=== PATIENT | female | born 1940 | race Caucasian/White ===

== ENCOUNTER 2022-02-23 12:48 | Emergency (ER) | payer OTHER ==
[2022-02-23 13:26] VITALS: BMI 34.3
[2022-02-23 14:11] LABS: INR 1.02 (0.83-1.09); PROTHROMBIN TIME (PATIENT) 11.7 SEC (9.7-13.0)
[2022-02-23 14:32] LABS: ACTIVATED PTT 29.2 SECONDS (25.2-36.5)
[2022-02-23 14:42] LABS: BASO % 0.3 % (0-2.0); HEMATOCRIT 45.9 % (32.4-45.2); HEMOGLOBIN 15.1 GM/dL (10.7-15.3); LYMPH % 12.5 % (8-40); MCH 27.8 pg (25.7-33.7); MCHC 32.9 g/dl (32.0-36.0); MEAN CELL VOLUME 84.5 fl (80-96); MEAN PLT VOLUME 10.3 fl (7.5-11.1); MONO % 4.6 % (3.8-10.2); NEUT % 82.6 % (42.8-82.8); PLATELET COUNT 331 10^3/uL (134-434); RBC 5.43 M/mm3 (3.60-5.2); RDW 15.6 % (11.6-15.6); WHITE BLOOD COUNT 20.4 K/mm3 (4.0-10.0)
[2022-02-23] MEDS ORDERED: SODIUM CHLORIDE 0.9% 500 ML INFUS.BAG IV ONE (14:51)
[2022-02-23 15:18] VITALS: PULSE 74
[2022-02-23 15:20] VITALS: TEMP 98.1
[2022-02-23 17:03] LABS: PH,URINE 5.5 (5.0-8.0); URINE APPEARANCE CLEAR; URINE BILIRUBIN NEGATIVE (NEGATIVE); URINE COLOR YELLOW; URINE GLUCOSE (UA) NEGATIVE (NEGATIVE); URINE KETONE NEGATIVE (NEGATIVE); URINE LEUK ESTERASE NEGATIVE (NEGATIVE); URINE NITRITE NEGATIVE (NEGATIVE); URINE PROTEIN NEGATIVE (NEGATIVE); URINE UROBILINOGEN 0.2 mg/dL (0.2-1.0)
[2022-02-23 17:03] LABS: BLOOD UREA NITROGEN 19.3 mg/dL (7-18)
[2022-02-23 17:04] LABS: ALBUMIN 3.5 g/dl (3.4-5.0)
[2022-02-23 17:07] LABS: CREATININE 0.7 mg/dL (0.55-1.3)
[2022-02-23 18:22] VITALS: BP 177/87
[2022-02-23 19:52] LABS: ANISOCYTOSIS 0; HELMET CELLS 0; HOWELL-JOLLY BODIES 0; MACROCYTOSIS 0; OVALOCYTE 0; ROULEAU 0; SICKELED CELLS 0; TARGET CELLS 0; TEAR DROP CELLS 0; TOXIC GRANULATION 0
== END 2022-02-23 18:20 | disposition home or self-care (01) ==
LOC: JER 12:48
DX: R42 Dizziness and giddiness (principal); R94.31 Abnormal electrocardiogram [ECG] [EKG]
CPT/HCPCS: 36415; 71045-TC-FY; 80053; 81003; 82962; 84484; 85025; 85610; 85730; 87086; 93005; 93010; 99285-25